=== PATIENT | male | born 1960 | race Asian ===

== ENCOUNTER 2025-11-03 21:56 | Emergency (ER) | payer OTHER ==
[~2025-11-03] VITALS: Ht 177.8 cm; Wt 68.1 kg
[2025-11-03 22:05] VITALS: TEMP 97.1
[2025-11-04 00:07] LABS: PLATELET COUNT (AUTO) 426 K/uL (150-450); RED BLOOD CELL COUNT(AUTO) 4.63 MIL/uL (4.50-5.90); RED CELL DISTRIBUTION WIDTH 14.9 % (11.5-14.5); WHITE BLOOD COUNT (AUTO) 11.2 K/uL (4.5-11.0)
[2025-11-04 00:18] LABS: CALCIUM, TOTAL 8.8 mg/dL (8.8-10.5); CREATININE 1.18 mg/dL (0.60-1.30); GLOMERULAR FILTR. RATE CALC > 60 mL/min (>60); GLUCOSE,RANDOM 113 mg/dL (70-110); SODIUM SERUM 142 mmol/L (136-145); UREA NITROGEN, BLOOD 11 mg/dL (7-18)
[2025-11-04 00:21] LABS: ASPARTATE AMINOTRANSFERASE 21.0 U/L (15-37); TOTAL PROTEIN, SERUM 7.2 g/dL (6.4-8.2)
[2025-11-04 00:25] LABS: ALCOHOL, BLOOD (SERUM) 101.0 mg/dL (0-10)
[2025-11-04 01:49] VITALS: BP 148/74; PULSE 78; RESP 16; O2SAT 100
== END 2025-11-04 02:08 | disposition home or self-care (01) ==
LOC: EMS 21:56
DX: F10.229 Alcohol dependence with intoxication, unspecified (principal); F15.90 Other stimulant use, unspecified, uncomplicated; Z86.73 Personal history of transient ischemic attack (TIA), and cerebral infarction without residual deficits; Y90.5 Blood alcohol level of 100-119 mg/100 ml
CPT/HCPCS: 99283; 80048; 80076; 85025; 36415; G0480